=== PATIENT | male | born 1970 | race Caucasian/White ===

== ENCOUNTER 2017-01-07 17:03 | Emergency (ER) | payer OTHER | END 2017-01-07 18:50 | disposition home or self-care (01) | LOC: ER 17:03 | DX: M54.12 Radiculopathy, cervical region (principal); E11.9 Type 2 diabetes mellitus without complications; I10 Essential (primary) hypertension; Z88.0 Allergy status to penicillin | CPT/HCPCS: 73030; 96372; 99283-25 ==